=== PATIENT | female | born 2000 | race African-American/Black ===

== ENCOUNTER 2021-05-16 20:57 | Emergency (ER) | payer OTHER ==
[~2021-05-16 20:57] MED LIST: FEOSOL325 MG PO; FLINTSTONES GU1 EACH PO; FOLIC ACID1 M1 PO; PRENATAL FORMU1 EACH PO; VITAMIN D31000 UNIT PO
[2021-05-16 21:20] LABS: BASOPHIL 0.4 % (0-2); EOSINOPHIL 0.2 % (0-5); HCT 30.2 % (37.0-47.0); HGB 9.7 g/dl (12.5-16.0); LYMPHOCYTE 25.4 % (15-48); MCH 29.7 pg (25.0-31.0); MCHC 32.1 g/dL (32.0-36.0); MCV 92.4 fL (78.0-100.0); MONOCYTE 15.9 % (0-12); MPV 10.5 fL (6.0-9.5); NEUTROPHIL 56.8 % (41-80); NRBC 0; PLT 236 K/uL (150-400); RBC 3.27 M/uL (4.20-5.40); RDW 13.8 % (11.5-14.0); WBC 4.7 K/uL (4.0-10.5)
[2021-05-16 21:49] LABS: BILIRUBIN NEGATIVE (NEGATIVE); BLOOD NEGATIVE Ery/uL (NEGATIVE); CLARITY CLEAR (CLEAR); COLOR YELLOW (YELLOW); GLUCOSE (U) NORMAL (NORMAL); LEUKOCYTES 1+ Leu/uL (NEGATIVE); NITRITE NEGATIVE (NEGATIVE); PROTEIN NEGATIVE (NEGATIVE); SPECIFIC GRAVITY 1.015 (1.001-1.030)
[2021-05-16 21:55] LABS: BACTERIA 3+; URINARY WBC RARE
[2021-05-16 22:03] LABS: ALBUMIN 2.7 g/dL (3.4-5.0); BILIRUBIN - TOTAL 0.7 mg/dL (0.2-1.0); BUN/CREAT RATIO (CALC) 14.3 RATIO; CREATININE 0.56 mg/dL (0.51-0.95); GLOBULIN (CALCULATION) 3.8 g/dL; POTASSIUM 3.6 mmol/L (3.5-5.1); TOTAL PROTEIN 6.5 g/dL (6.4-8.2)
== END 2021-05-17 00:43 | disposition home or self-care (01) ==
LOC: FER 20:57
PROVIDERS: Emergency Medicine
DX: O99.893 Other specified diseases and conditions complicating puerperium (principal); R07.89 Other chest pain; Z3A.36 36 weeks gestation of pregnancy
CPT/HCPCS: 36415; 71045; 80053; 81001; 84484; 85025; 93005; J2916; Q0138

== ENCOUNTER 2021-06-08 11:56 | Inpatient (IN) | payer OTHER ==
[2021-06-10 09:36] LABS: HCT 32.9 % (37.0-47.0); HGB 10.4 g/dl (12.5-16.0); MCH 29.1 pg (25.0-31.0); MCHC 31.6 g/dL (32.0-36.0); MCV 92.2 fL (78.0-100.0); MPV 9.9 fL (6.0-9.5); RBC 3.57 M/uL (4.20-5.40); RDW 15.3 % (11.5-14.0); WBC 6.8 K/uL (4.0-10.5)
[2021-06-10 09:38] LABS: BILIRUBIN NEGATIVE (NEGATIVE); BLOOD NEGATIVE Ery/uL (NEGATIVE); CLARITY CLOUDY (CLEAR); COLOR YELLOW (YELLOW); GLUCOSE (U) NORMAL (NORMAL); LEUKOCYTES 1+ Leu/uL (NEGATIVE); NITRITE NEGATIVE (NEGATIVE); PROTEIN NEGATIVE (NEGATIVE); SPECIFIC GRAVITY 1.015 (1.001-1.030); UROBILINOGEN 0.2 mg/dL (0.2-1.0)
[2021-06-10 09:51] LABS: BACTERIA 4+
[2021-06-12 04:17] LABS: HCT 32.9 % (37.0-47.0); HGB 10.5 g/dl (12.5-16.0); MCH 29.4 pg (25.0-31.0); MCHC 31.9 g/dL (32.0-36.0); MCV 92.2 fL (78.0-100.0); MPV 9.6 fL (6.0-9.5); RBC 3.57 M/uL (4.20-5.40); RDW 15.2 % (11.5-14.0); WBC 7.2 K/uL (4.0-10.5)
== END 2021-06-12 20:41 | disposition home or self-care (01) | DRG 806 ==
LOC: FOB 11:56
PROVIDERS: ADMIT Obstetrics & Gynecology
PROC: 10E0XZZ Delivery of Products of Conception, External Approach (ICD-10-PCS; principal; 2021-06-11)
PROC: 0HQ9XZZ Repair Perineum Skin, External Approach (ICD-10-PCS; 2021-06-11)
PROC: 0UQGXZZ Repair Vagina, External Approach (ICD-10-PCS; 2021-06-11)
PROC: 3E0P7VZ Introduction of Hormone into Female Reproductive, Via Natural or Artificial Opening (ICD-10-PCS; 2021-06-11)
DX: O41.03X0 Oligohydramnios, third trimester, not applicable or unspecified (principal); D62 Acute posthemorrhagic anemia; Z37.0 Single live birth; O99.02 Anemia complicating childbirth; Z20.822 Contact with and (suspected) exposure to COVID-19; Z3A.39 39 weeks gestation of pregnancy; O69.81X0 Labor and delivery complicated by cord around neck, without compression, not applicable or unspecified; O99.214 Obesity complicating childbirth; O70.0 First degree perineal laceration during delivery
CPT/HCPCS: 36415; 81001; 84112; 86850; 86900; 86901; J2300; J2405; J7120; U0002

== ENCOUNTER 2022-03-15 14:39 | Emergency (ER) | payer OTHER | END 2022-03-15 17:29 | disposition left against medical advice (07) | LOC: FER 14:39 | DX: O99.891 Other specified diseases and conditions complicating pregnancy (principal); R10.9 Unspecified abdominal pain; Z3A.12 12 weeks gestation of pregnancy; Z53.29 Procedure and treatment not carried out because of patient's decision for other reasons; Z28.310 Unvaccinated for COVID-19 | CPT/HCPCS: 99281 ==